=== PATIENT | female | born 1965 | race Caucasian/White ===

== ENCOUNTER → 2016-10-28 | Outpatient (CLI) | payer MEDICARE, OTHER ==
--- NOTE | 2016-10-28 14:22 | CT ---
EXAMINATION TYPE: CT chest wo con DATE OF EXAM: 10/28/2016 2:07 PM COMPARISON: NONE HISTORY: SOB CT DLP: 335.7 mGycm Automated exposure control for dose reduction was used. FINDINGS: High-resolution CT scanning through the chest demonstrates no significant interstitial change. There is no intralobular septal thickening or centrilobular thickening. No parenchymal mass lesion is seen. No groundglass opacity is seen. There is no significant axillary, internal mammary, mediastinal or h ilar adenopathy. There is no pleural or pericardial fluid. Visualized portions of the upper abdomen are unremarkable. IMPRESSION: NORMAL HIGH-RESOLUTION CT SCAN OF THE CHEST.
== END | disposition home or self-care (01) ==
LOC: RADCTMAIN 13:28
PROVIDERS: ATTEND Internal Medicine Critical Care Medicine
DX: R06.02 Shortness of breath (principal)
CPT/HCPCS: 71250

== ENCOUNTER → 2019-10-31 | Outpatient (CLI) | payer MEDICARE ==
--- NOTE | 2019-11-01 06:32 | BD ---
EXAMINATION TYPE: Axial Bone Density DATE OF EXAM: 10/31/2019 COMPARISON: 05.17.2007 CLINICAL HISTORY: 54 YR OLD FEMALE....ICD-10 CODE: M85.9 DISORDER OF BONE Height: 61 Weight: 107 FRAX RISK QUESTIONS: Glucocorticoids (More than 3mos): YES (Ex: prednisone, prednisolone, methylprednisolone, dexamethasone, and hydrocortisone). History of Fracture in Adulthood: PT ONLY 54, NO FXs OVER 50 YRS OF AGE Secondary Osteoporosis: YES 3. Menopause before 45: YES 4. Malnutrition: GLUTEN AND DAIRY FREE DIET Rheumatoid Arthritis: YES RISK FACTORS HISTORY OF: History of Wrist Fracture: LT WRIST, AND ALL TOES BROKEN ALL UNDER AGE OF 50 Active: NO, RA, SEVERE Diet low in dairy products/other sources of calcium: YES, DAIRY AND GLUTEN FREE Postmenopausal woman: YES, HYST AT AGE 27 Take estrogen and/or progesterone medications: YES, FROM AGE 27 TO 30 ONLY, NONE NOW Lost more than 2 inches in height since high school: YES Frequent falls: UNSTEADY, RA Poor Health: SEVERE RA, FRAIL Hyperparathyroidism: NO Adrenal Insufficiency: NO MEDICATIONS: Prednisone or other steroids: YES FOR MANY YRS SINCE AGE 19, PREDNISONE FOR RA Thyroid Medications: YES, SYNTHROID FOR ABOUT 3 YRS Additional Medications: XELJENZ XL, METHOTREXATE, PAIN MEDS, WELLBUTRIN, XANAX, REFLUX MEDS, STATIN F OR CHOLESTEROL, CALCIUM IN HER MULTIVITAMIN,VIT D AND VIT B Additional History: RA, REFLUX, CHOLESTEROL, PAIN EXAM MEASUREMENTS: Bone mineral densitometry was performed using the [employer] System. Bone mineral density as measured about the Lumbar spine is: ----- L1-L4(G/cm2): 1.042 T Score Values are as follows: ----- L1: -1.6 ----- L2: -1.6 ----- L3: -1.2 ----- L4: -0.3 ----- L1-L4: -1.1 Bone mineral density has: Decreased -1.7% since study of: 05.17.2007 Bone mineral density about the R hip (g/cm2): 0.890 Bone mineral density about the L hip (g/cm2): 0.806 T Score values are as follows: -----R Neck: -1.1 -----L Neck: -1.9 -----R Total: -0.9 -----L Total: -1.6 Bone mineral density has: Decreased -1.4% since study of: 05.17.2007 FRAX%s: THERE IS A 11.9% CHANCE FOR A MAJOR OSTEOPOROTIC FX AND A 1.9% FOR HIP.....PROBABILITY FOR FX IN 10 YRS TIME IMPRESSION: Osteopenia (T Score between -2.5 and -1). There is slightly increased risk of fracture and the patient may be considered for treatment. Re-Screen 2-5 years. NOTE: T-SCORE=SD OF THE YOUNG ADULT MEAN.
--- NOTE | 2019-11-04 09:00 | MM ---
Reason for exam: screening (asymptomatic). Last mammogram was performed 4 years and 11 months ago. History: Reductions of both breasts, 2018. Benign excisional biopsy of the right breast, December 05, 2002. Took hormonal contraceptives for 1 year. Took estrogen for 3 years beginning at age 27. Physical Findings: A clinical breast exam by your physician is recommended on an annual basis and results should be correlated with mammographic findings. MG Screening Mammo w CAD Bilateral CC and MLO view(s) were taken. Prior study comparison: December 03, 2014, bilateral MG diagnostic mammo w CAD [facility]. June 25, 2010, left breast mammogram dig work up. The breast tissue is heterogeneously dense. This may lower the sensitivity of mammography. Benign appearing coarse bilateral calcifications. No significant changes when compared with prior studies. ASSESSMENT: Benign, BI-RAD 2 RECOMMENDATION: Routine screening mammogram of both breasts in 1 year.
== END | disposition home or self-care (01) ==
LOC: RADMAMWWP 14:19
PROVIDERS: ATTEND Family Medicine
DX: Z12.31 Encounter for screening mammogram for malignant neoplasm of breast (principal); M85.80 Other specified disorders of bone density and structure, unspecified site
CPT/HCPCS: 77067; 77080

== ENCOUNTER → 2022-03-18 | Outpatient (CLI) | payer MEDICARE ==
[2022-03-18 18:53] LABS: Basophils # (A) 0.01 X 10*3/uL (0.00-0.10); Basophils % (A) 0.1 %; Eosinophils # (A) 0 X 10*3/uL (0.04-0.35); Eosinophils % (A) 0 %; HCT 37.3 % (37.2-46.3); HGB 10.9 g/dL (12.0-15.0); Lymphocytes % (A) 5.4 %; MCHC 29.2 g/dL (32.0-37.0); MCV 92.3 fL (80.0-97.0); Mean Platelet Volume 9.7 fL (9.5-12.2); Monocytes # (A) 0.13 X 10*3/uL (0.20-1.00); Monocytes % (A) 1.4 %; NRBC Per 100 WBC 0 /100 WBCS (0.0-0.0); Neutrophils # (A) 8.53 X 10*3/uL (1.80-7.70); Neutrophils % (A) 92.1 %; Platelet Count 505 X 10*3/uL (140-440); RBC 4.04 X 10*6/uL (4.10-5.20); RDW 20.8 % (11.5-14.5); WBC 9.26 X 10*3/uL (4.50-10.00)
[2022-03-18 19:28] LABS: Protein, Total 7.3 g/dL (6.2-8.2)
[2022-03-18 19:35] LABS: % Iron Saturation 69.15 (12.00-45.00); ALT 25 U/L (8-44); AST 20 U/L (13-35); African American GFR (CKD) 101.3 (60.0-200.0); Albumin 4.9 g/dL (3.8-4.9); Albumin/Globulin Ratio 1.83 (1.60-3.17); Alkaline Phosphatase 79 U/L (41-126); Bilirubin, Conjugated <0.20 mg/dL (0.20-0.40); Ferritin 55.2 ng/mL (10.0-291.0); Globulin 2.7 g/dL (1.6-3.3); Iron 394 ug/dL (50-170); LDH 243 U/L (120-246); Non-African American GFR(CKD) 87.4 (60.0-200.0); Total Bilirubin <0.15 mg/dL (0.30-1.20); Total Iron Binding Capacity 570 ug/dL (228-460); Total Protein 7.6 g/dL (6.2-8.2)
[2022-03-19 11:26] LABS: HLA B27 NEGATIVE
== END | disposition home or self-care (01) ==
LOC: LABWHC1 12:18
PROVIDERS: ATTEND Internal Medicine
DX: M05.79 Rheumatoid arthritis with rheumatoid factor of multiple sites without organ or systems involvement (principal)
CPT/HCPCS: 36415; 80076; 82565; 82607; 82728; 82746; 83010; 83540; 83550; 83615; 84165; 85025; 86334; 86812

== ENCOUNTER → 2022-03-25 | Outpatient (CLI) | payer MEDICARE | END | disposition home or self-care (01) | LOC: LABWHC1 13:44 | PROVIDERS: ATTEND Internal Medicine | DX: Z51.81 Encounter for therapeutic drug level monitoring (principal); M06.9 Rheumatoid arthritis, unspecified | CPT/HCPCS: 84166 ==

== ENCOUNTER → 2022-04-15 | Outpatient (CLI) | payer MEDICARE ==
--- NOTE | 2022-04-15 10:01 | CT ---
EXAMINATION TYPE: High-resolution CT chest DATE OF EXAM: 04/15/2022 COMPARISON: 10/28/2016 HISTORY: 57-year-old female R06.02, D84.9, M06.9, Hx of rheumatoid arthritis, lung infection x 6weeks . TECHNIQUE: High-resolution CT scanning of the chest utilizing 1 mm slice thickness and 1 cm gap or HR CT protocol. No IV contrast. Both prone and supine imaging is performed. CT DLP: DLP 259.5 mGycm Automated exposure control for dose reduction was used. FINDINGS: Patient has either lost weight in the interval or is had reduction mammoplasties. Areas of bilateral fat necrosis calcification in the breasts are noted. Heart normal size with small anterior pericardial effusion measuring 5 mm. Aorta normal caliber with bovine configuration to the aortic arch. Incidental duplex SVC. No thoracic lymphadenopathy appreciated by HRCT technique. Trace biapical pleural parenchymal scarring. Some mild subpleural reticular densities in the upper hardeep ngs are unchanged. Additional mild reticular changes in the lower lungs as well though having slightly increased from pr ior. No honeycombing or dominant groundglass. No consolidation or pleural effusion. Some mild patchy densi ty medial basilar right middle lobe, likely atelectasis. No centrilobular nodules. No [place]bud opa cities. No rin bronchiectasis seen. Small hiatal hernia. Nonobstructive 4 mm left renal calculus. Bones: No osseous destructive process. IMPRESSION: 1. MINIMAL SUBPLEURAL INTERSTITIAL SCARRING/FIBROSIS IS SUGGESTED, SIMILAR IN THE UPPER LUNGS. SLIGHT PROGRESSION IN THE LOWER LUNGS. NO DOMINANT FINDINGS OF NSIP OR UIP. 2. SMALL ANTERIOR PERICARDIAL EFFUSION MEASURING 5 MM. 3. SMALL HIATAL HERNIA. A 4 MM NONOBSTRUCTIVE LEFT RENAL STONE.
== END | disposition home or self-care (01) ==
LOC: RADCTMAIN 06:32
PROVIDERS: ATTEND Internal Medicine
DX: J90 Pleural effusion, not elsewhere classified (principal); K44.9 Diaphragmatic hernia without obstruction or gangrene; I31.3 Pericardial effusion (noninflammatory)
CPT/HCPCS: 71250

== ENCOUNTER → 2022-04-27 | Outpatient (CLI) | payer MEDICARE ==
[2022-04-27 14:42] LABS: Appearance,Urine Clear (Clear); Bilirubin,Urine Negative (Negative); Blood,Urine Moderate (Negative); Color,Urine Yellow; Glucose,Urine (UA) 4+ (Negative); Ketones,Urine Negative (Negative); Leukocyte Esterase,Urine Negative (Negative); Mucus,Urine Rare /hpf; Nitrite,Urine Negative (Negative); PH, Urine 5.5 (5.0-8.0); Protein,Urine Trace (Negative); RBC,Urine 6 /hpf (0-5); Specific Gravity,Urine 1.021 (1.001-1.035); Squamous Epithelial Cell,Urine <1 /hpf (0-4); Urobilinogen,Urine <2.0 mg/dL (<2.0); WBC,Urine 1 /hpf (0-5)
[2022-04-27 14:55] LABS: Creatinine,Urine Random 96.6 mg/dL; Protein/Creatinine Ratio,Urine 0.145
[2022-04-27 19:36] LABS: Basophils # (A) 0.06 X 10*3/uL (0.00-0.10); Basophils % (A) 0.3 %; Eosinophils # (A) 0 X 10*3/uL (0.04-0.35); Eosinophils % (A) 0 %; HCT 37.5 % (37.2-46.3); HGB 10.7 g/dL (12.0-15.0); Immature Grans, Automated 2.5 %; Lymphocytes # (A) 0.98 X 10*3/uL (0.90-5.00); Lymphocytes % (A) 5.2 %; MCH 27.4 pg (27.0-32.0); MCHC 28.5 g/dL (32.0-37.0); MCV 96.2 fL (80.0-97.0); Mean Platelet Volume 10.2 fL (9.5-12.2); Monocytes # (A) 0.51 X 10*3/uL (0.20-1.00); Monocytes % (A) 2.7 %; NRBC Per 100 WBC 0 /100 WBCS (0.0-0.0); Neutrophils # (A) 16.85 X 10*3/uL (1.80-7.70); Neutrophils % (A) 89.3 %; Platelet Count 568 X 10*3/uL (140-440); RDW 17.3 % (11.5-14.5); WBC 18.88 X 10*3/uL (4.50-10.00)
[2022-04-27 20:25] LABS: Erythrocyte Sedimentation Rate 29 mm/Hr (0-30)
[2022-04-27 21:09] LABS: Rheumatoid Factor, Qnt 161 IU/mL (0-15)
[2022-04-27 21:23] LABS: ALT 27 U/L (8-44); AST 18 U/L (13-35); African American GFR (CKD) 99.7 (60.0-200.0); Albumin 4.1 g/dL (3.8-4.9); Albumin/Globulin Ratio 1.53 (1.60-3.17); Alkaline Phosphatase 84 U/L (41-126); BUN/Creat Ratio 28.83 Ratio (12.00-20.00); Blood Urea Nitrogen 22.4 mg/dL (9.0-27.0); Calcium 9.8 mg/dL (8.7-10.3); Carbon Dioxide 24.9 mmol/L (20.0-27.5); Chloride 99 mmol/L (96-109); Globulin 2.7 g/dL (1.6-3.3); Glucose 313 mg/dL (70-110); Potassium 3.6 mmol/L (3.5-5.5); Sodium 137 mmol/L (135-145); Total Bilirubin <0.15 mg/dL (0.30-1.20); Total Protein 6.7 g/dL (6.2-8.2)
[2022-04-27 23:24] LABS: Immunoglobulin M 52.7 mg/dL (40.0-280.0)
[2022-04-28 03:50] LABS: Anti-DNA, DS unit <1.0 IU/mL; Anti-Smith Ab Interp NEGATIVE (NEGATIVE); Cyclic Citrull Pep IgG Unit >300.0 U/mL; Cyclic Citrullinated Pep IgG POSITIVE (NEGATIVE); DNA Double-Stranded NEGATIVE (NEGATIVE)
[2022-04-28 14:38] LABS: C-ANCA <1:20 Titer (<1:20)
== END | disposition home or self-care (01) ==
LOC: LABWHC1 13:29
PROVIDERS: ATTEND Internal Medicine
DX: Z51.81 Encounter for therapeutic drug level monitoring (principal); M05.79 Rheumatoid arthritis with rheumatoid factor of multiple sites without organ or systems involvement
CPT/HCPCS: 36415; 80053; 81001; 82570; 82784; 83516; 84156; 85025; 85652; 86038; 86140; 86160; 86200; 86225; 86235; 86255; 86431; 86480

== ENCOUNTER 2022-05-12 10:38 | Day surgery (SDC) | payer MEDICARE ==
[~2022-05-12 10:38] MED LIST: ALBUTEROL NEB (CONC) 2.5 MG/0.5 ML INHALATION ONE; ATROPINE SULFATE 0.4 MG/ML 1 ML VIAL IM ONE; LACTATED RINGERS 1,000 ML IV SCH; LIDOCAINE 2% (PF) 20 MG/ML 5 ML VIAL INHALATION ONE; LIDOCAINE VISCOUS 300 MG/15 ML CUP MUCOUS MEM ONE
[2022-05-12 11:04] LABS: Glucose,Whole Blood 71 mg/dL (70-110)
[2022-05-12 11:05] VITALS: TEMP 97.2
[2022-05-12] MEDS ORDERED: ONDANSETRON 4 MG/2 ML VIAL IVP ONE (11:09)
[2022-05-12] MEDS ORDERED: ONDANSETRON 4 MG/2 ML VIAL ONE (11:12)
[2022-05-12] MEDS ORDERED: LIDOCAINE 2% INJ 20 MG/ML INTRATRACH ONE ×2 (12:16→12:21)
[2022-05-12] MEDS ORDERED: PROPOFOL 10 MG/ML 20 ML VIAL IV ONE (12:17)
[2022-05-12] MEDS ORDERED: MIDAZOLAM 2 MG/2 ML VIAL ONE (12:17)
[2022-05-12] MEDS ORDERED: LIDOCAINE 2% INJ 20 MG/ML (2 ML VIAL) ONE (12:17)
[2022-05-12 12:55] VITALS: BP 101/70; PULSE 88; RESP 18
--- NOTE | 2022-05-12 22:30 | PCN ---
PROCEDURE NOTE This is a Pulmonary/Critical Care procedure note. PRE-PROCEDURE DIAGNOSES:: 1. Rheumatoid arthritis. 2. Pneumonia. 3. Infection. POST PROCEDURE DIAGNOSES:: 1. Rheumatoid arthritis. 2. Pneumonia. 3. Infection. PROCEDURE:: Bronchoscopy, airway examination, therapeutic lavage, bronchoalveolar lavage. PROCEDURE:: Tyrone Beltrán CRNA, provided general anesthesia. The patient's procedure took place in room #1 [facility]. There was informed consent and universal timeout. After the patient was adequately sedated and being fully monitored, the bronchoscope was inserted through the right nostril. It passed through the right nasopharynx into the oropharynx. The hypopharynx was identified. Initially, there were thick yellow secretions noted throughout the hypopharynx. They were suctioned. Next, there was a thorough evaluation of the hypopharyngeal structures including anterior commissure, true cords, false cords, arytenoids, piriform sinuses right and left, vallecula, and epiglottis. All structures appeared normal. After topicalization of the glottic opening, the bronchoscope was pushed through the glottic opening into the trachea. The trachea had some thick secretions noted. They were suctioned. The trachea itself though appeared normal. Tracheal renea was sharp. Right and left mainstem were topicalized with lidocaine. Afterwards, there was a thorough evaluation of right upper lobe and its 3 segments, right middle lobe and its 2 segments, right lower lobe and its 5 segments, left upper lobe proper and its 2 segments, lingula and its 2 segments, and left lower lobe and its 4 segments. Thick secretions were noted throughout. They were purulent appearing. The mucosa was [id number]-fnoktretra erythematous and hyperemic. There was no dominant mass or tumor. There was no bleeding. There was some vascular engorgement. After secretions were suctioned, the bronchoscope was wedged into the right middle lobe. We did a formal BAL. 35 mL of fluid was recovered. The fluid will be sent for analysis including CBC with differential, cytology, and microbiology. The patient tolerated the procedure well and will be recovered. There was no immediate complication. MMODL / IJN: [id number] / [facility] CENTERJustino
[2022-05-13 01:32] LABS: Appearance,BF Cloudy
== END 2022-05-12 13:10 | disposition home or self-care (01) ==
LOC: ORWHC2ENDO 10:38
PROVIDERS: ATTEND Internal Medicine Critical Care Medicine
DX: J18.9 Pneumonia, unspecified organism (principal); M06.9 Rheumatoid arthritis, unspecified; J45.909 Unspecified asthma, uncomplicated; E06.3 Autoimmune thyroiditis; F41.9 Anxiety disorder, unspecified; F32.A Depression, unspecified; K21.9 Gastro-esophageal reflux disease without esophagitis; Z88.5 Allergy status to narcotic agent; Z88.8 Allergy status to other drugs, medicaments and biological substances; Z88.3 Allergy status to other anti-infective agents; Z79.899 Other long term (current) drug therapy; Z79.52 Long term (current) use of systemic steroids; Z79.890 Hormone replacement therapy; Z83.6 Family history of other diseases of the respiratory system; Z81.8 Family history of other mental and behavioral disorders; Z79.82 Long term (current) use of aspirin; Z79.51 Long term (current) use of inhaled steroids; I73.00 Raynaud's syndrome without gangrene; D64.9 Anemia, unspecified
CPT/HCPCS: 88108; 88305; 89050; 87252; 87070; 87205; 87116; 87102; 87077; 87186; 87206; 31624; J2001 ×2; J2250; J0461; J2405; J2704; 87496; 87498; 87502; 87529; 87634; 87798

== ENCOUNTER → 2022-06-16 | Outpatient (CLI) | payer MEDICARE ==
--- NOTE | 2022-06-16 19:20 | BD ---
EXAMINATION TYPE: Axial Bone Density DATE OF EXAM: 06/16/2022 CLINICAL HISTORY: 57 years year old Female. ICD-10 CODE: M85.80 OSTEOPERNIA Height: 62 Weight: 105 FRAX RISK QUESTIONS: Alcohol (3 or more units per day): NO Family History (Parent hip fracture): NO Glucocorticoids (More than 3mos): YES (Ex: prednisone, prednisolone, methylprednisolone, dexamethasone, and hydrocortisone). History of Fracture in Adulthood: NO Secondary Osteoporosis: 1. Type 1 Diabetes: NO 2. Hyperthyroidism: NO 3. Menopause before 45: YES 4. Malnutrition: YES 5. Chronic liver disease: NO Rheumatoid Arthritis: YES Current Tobacco Use: NO RISK FACTORS HISTORY OF: Hip Fracture (Right/Left): NO Spine Fracture: NO History of Wrist Fracture: YES When: AGE 14 Surgery to Spine/Hip(right/left)/Wrist (right/left): NO Family History of Osteoporosis: YES, MOTHER Active: YES Diet low in dairy products/other sources of calcium: YES Postmenopausal woman: YES Take estrogen and/or progesterone medications: NO Lost more than 2 inches in height since high school: NO Frequent falls: NO Poor Health: YES Hyperparathyroidism: NO Adrenal Insufficiency: NO MEDICATIONS: Prednisone or other steroids: YES PREDNISONE How Long: PAST 15 YEARS Thyroid Medications: SYNTHROID How Long: PAST 4 YEARS Osteoporosis Medications: NO Additional Medications: REFLUX MEDS, MULTI VIT. Additional History: EXAM MEASUREMENTS: Bone mineral densitometry was performed using the [email or web address] System. Bone mineral density as measured about the Lumbar spine is: ----- L1-L4(G/cm2): 0.929 T Score Values are as follows: ----- L1: -2.6 ----- L2: -2.1 ----- L3: -2.2 ----- L4: -1.7 ----- L1-L4: -2.1 Bone mineral density has: DECREASED 12.2 % since study of: 05/17/2007 Bone mineral density about the R hip (g/cm2): 0.820 Bone mineral density about the L hip (g/cm2): 0.697 T Score values are as follows: -----R Neck: -1.6 -----L Neck: -2.5 -----R Total: -1.4 -----L Total: -2.3 Bone mineral density has: DECREASED 9.7 % since study of: 05/16/2007 FRAX%s: The graph provided illustrates a 16.9% chance for a major osteoporotic fx and a 4.2% chance f or the hips probability for fx in 10 years time. IMPRESSION: Osteoporosis (T Score less than -2.5). There is increased fracture risk and therapy is usually indicated based on age. Re-Screen 1-2 years. NOTE: T-SCORE=SD OF THE YOUNG ADULT MEAN.
--- NOTE | 2022-06-24 17:57 | MM ---
Reason for Exam: Screening (asymptomatic). Last mammogram was performed 2 year(s) and 8 month(s) ago. Patient History: Menarche at age 18. First Full-Term at age 21. Left ovary removed at age 27. Hysterectomy at age 27. Patient used Hormonal Contraceptives for 1 year. 2018, Bilateral Reduction. 12/05/2002, Benign Excisional Biopsy on the right side. Risk Values: Ana 5 year model risk: 0.9%. NCI Lifetime model risk: 6.4%. Prior Study Comparison: 06/25/2010 Left Diagnostic Mammogram, [facility]. 12/03/2014 Bilateral Diagnostic Mammogram, [facility]. 10/31/2019 Bilateral Screening Mammogram, [facility]. Tissue Density: There are scattered fibroglandular densities. Findings: Analyzed By CAD. Dense coarse large calcifications are present bilaterally. No significant interval changes are evident. No suspicious groups of microcalcifications, spiculated or lobular masses, architectural distortion or other secondary signs of malignancy are mammographically apparent. Overall Assessment: Benign, BI-RAD 2 Management: Screening Mammogram of both breasts in 1 year. A negative mammogram report should not preclude additional follow up of suspicious palpable abnormalities. Patient should continue monthly self breast exam. A clinical breast exam by your physician is recommended on an annual basis and results should be correlated with mammographic findings. Electronically signed and approved by: Moises Lafleur D.O. Radiologis
== END | disposition home or self-care (01) ==
LOC: RADMAMWWP 07:59
PROVIDERS: ATTEND Family Medicine
DX: Z12.31 Encounter for screening mammogram for malignant neoplasm of breast (principal); M81.0 Age-related osteoporosis without current pathological fracture
CPT/HCPCS: 77063; 77067; 77080

== ENCOUNTER → 2022-08-01 | Outpatient (CLI) | payer MEDICARE ==
--- NOTE | 2022-08-01 11:09 | US ---
EXAMINATION TYPE: US kidneys/renal and bladder DATE OF EXAM: 08/01/2022 COMPARISON: NONE CLINICAL HISTORY: R80.1 PERSISTENT PROTEINURIA. Abnormal labs EXAM MEASUREMENTS: Right Kidney: 9.6 x 5.0 x 4.8 cm Left Kidney: 9.3 x 5.1 x 4.0 cm Right Kidney: Appeared wnl, lower pole gassed out Left Kidney: Appeared wnl Bladder: Not fully distended, limited views show no abnormality Bilateral Jets seen: Only right jet visualized There is no evidence for hydronephrosis at this point in time. No nephrolithiasis is seen. No stan s are identified. The urinary bladder is anechoic. Bilateral right ureteral jet is seen. IMPRESSION: Limited right lower pole evaluation without evidence for bilateral obstructive uropathy.
== END | disposition home or self-care (01) ==
LOC: RADUSWWP 10:33
DX: R80.1 Persistent proteinuria, unspecified (principal)
CPT/HCPCS: 76770

== ENCOUNTER → 2022-10-26 | Outpatient (CLI) | payer MEDICARE ==
[2022-10-26 16:41] LABS: Basophils # (A) 0.09 X 10*3/uL (0.00-0.10); Basophils % (A) 1.8 %; Eosinophils # (A) 0.16 X 10*3/uL (0.04-0.35); Eosinophils % (A) 3.1 %; HCT 41.2 % (37.2-46.3); HGB 12.8 g/dL (12.0-15.0); Immature Grans, Automated 0.2 %; Lymphocytes # (A) 1.92 X 10*3/uL (0.90-5.00); Lymphocytes % (A) 37.7 %; MCH 30.3 pg (27.0-32.0); MCHC 31.1 g/dL (32.0-37.0); MCV 97.6 fL (80.0-97.0); Mean Platelet Volume 11.3 fL (9.5-12.2); Monocytes # (A) 0.44 X 10*3/uL (0.20-1.00); Monocytes % (A) 8.6 %; NRBC Per 100 WBC 0 /100 WBCS (0.0-0.0); Neutrophils # (A) 2.47 X 10*3/uL (1.80-7.70); Neutrophils % (A) 48.6 %; Platelet Count 288 X 10*3/uL (140-440); RBC 4.22 X 10*6/uL (4.10-5.20); RDW 14.7 % (11.5-14.5); WBC 5.09 X 10*3/uL (4.50-10.00)
[2022-10-27 12:15] LABS: ALT 23 U/L (8-44); AST 27 U/L (13-35); African American GFR (CKD) 73.4 (60.0-200.0); Albumin 4.6 g/dL (3.8-4.9); Albumin/Globulin Ratio 2.42 (1.60-3.17); Alkaline Phosphatase 61 U/L (41-126); Bilirubin, Conjugated <0.20 mg/dL (0.20-0.40); Chol/HDL Ratio 3.55 Ratio; Globulin 1.9 g/dL (1.6-3.3); LDL Cholesterol,Calculated 159.7 mg/dL (0.0-131.0); Non-African American GFR(CKD) 63.4 (60.0-200.0); Total Protein 6.5 g/dL (6.2-8.2)
== END | disposition home or self-care (01) ==
LOC: LABWHC1 08:53
PROVIDERS: ATTEND Internal Medicine
DX: Z51.81 Encounter for therapeutic drug level monitoring (principal); D84.9 Immunodeficiency, unspecified; M05.79 Rheumatoid arthritis with rheumatoid factor of multiple sites without organ or systems involvement; Z79.899 Other long term (current) drug therapy
CPT/HCPCS: 36415; 80061; 80076; 82565; 85025

== ENCOUNTER → 2022-12-21 | Outpatient (CLI) | payer MEDICARE ==
[2022-12-21 18:18] LABS: Basophils # (A) 0.04 X 10*3/uL (0.00-0.10); Basophils % (A) 0.8 %; Eosinophils # (A) 0.09 X 10*3/uL (0.04-0.35); Eosinophils % (A) 1.9 %; HCT 35.6 % (37.2-46.3); HGB 11.6 g/dL (12.0-15.0); Immature Grans, Automated 0.2 %; Lymphocytes # (A) 0.88 X 10*3/uL (0.90-5.00); Lymphocytes % (A) 18.2 %; MCH 31.4 pg (27.0-32.0); MCHC 32.6 g/dL (32.0-37.0); MCV 96.5 fL (80.0-97.0); Mean Platelet Volume 11.7 fL (9.5-12.2); Monocytes # (A) 0.38 X 10*3/uL (0.20-1.00); Monocytes % (A) 7.9 %; NRBC Per 100 WBC 0 /100 WBCS (0.0-0.0); Neutrophils # (A) 3.44 X 10*3/uL (1.80-7.70); Platelet Count 242 X 10*3/uL (140-440); RBC 3.69 X 10*6/uL (4.10-5.20); RDW 14.8 % (11.5-14.5); WBC 4.84 X 10*3/uL (4.50-10.00)
[2022-12-21 18:21] LABS: African American GFR (CKD) 90.6 (60.0-200.0); Albumin 4.6 g/dL (3.8-4.9); BUN/Creat Ratio 13.44 Ratio (12.00-20.00); Blood Urea Nitrogen 11.3 mg/dL (9.0-27.0); Calcium 10.1 mg/dL (8.7-10.3); Carbon Dioxide 29.8 mmol/L (20.0-27.5); Chloride 105 mmol/L (96-109); Chol/HDL Ratio 3.49 Ratio; Glucose 77 mg/dL (70-110); LDL Cholesterol,Calculated 167.3 mg/dL (0.0-131.0); Non-African American GFR(CKD) 78.1 (60.0-200.0); Potassium 3.4 mmol/L (3.5-5.5); Sodium 145 mmol/L (135-145); VLDL Calculation 16.14 mg/dL (5.00-40.00)
[2022-12-22 14:17] LABS: ALT 36 U/L (8-44); AST 39 U/L (13-35); African American GFR (CKD) 83.4 (60.0-200.0); Albumin 4.7 g/dL (3.8-4.9); Albumin/Globulin Ratio 2.76 (1.60-3.17); Alkaline Phosphatase 73 U/L (41-126); Bilirubin, Conjugated <0.20 mg/dL (0.20-0.40); Globulin 1.7 g/dL (1.6-3.3); Total Protein 6.4 g/dL (6.2-8.2)
== END | disposition home or self-care (01) ==
LOC: LABWHC1 12:59
PROVIDERS: ATTEND Internal Medicine
DX: Z51.81 Encounter for therapeutic drug level monitoring (principal); D84.9 Immunodeficiency, unspecified; M05.79 Rheumatoid arthritis with rheumatoid factor of multiple sites without organ or systems involvement
CPT/HCPCS: 36415; 80061; 80069; 80076; 82565; 85025

== ENCOUNTER → 2023-04-17 | Outpatient (CLI) | payer MEDICARE ==
[2023-04-17 16:11] LABS: ALT 44 U/L (8-44); AST 18 U/L (13-35); Albumin 4.1 d/dL (3.8-4.9); Albumin/Globulin Ratio 1.64 Ratio (1.60-3.17); Alkaline Phosphatase 129 U/L (41-126); Bilirubin, Conjugated <0.20 mg/dL (0.20-0.40); Bilirubin,Unconjugated >0.10 mg/dL (0.20-1.00); Chol/HDL Ratio 3.04 Ratio; Globulin 2.5 d/dL (1.6-3.3); LDL Cholesterol,Calculated 134.8 mg/dL (0.0-131.0); Total Bilirubin 0.3 mg/dL (0.3-1.2); Total Protein 6.6 d/dL (6.2-8.2); VLDL Calculation 18.28 mg/dL (5.00-40.00)
[2023-04-17 16:44] LABS: Basophils # (A) 0.07 X 10*3/uL (0.00-0.10); Basophils % (A) 0.5 %; Eosinophils # (A) 0.14 X 10*3/uL (0.04-0.35); HCT 37.4 % (37.2-46.3); HGB 11.8 d/dL (12.0-15.0); Lymphocytes # (A) 2.27 X 10*3/uL (0.90-5.00); Lymphocytes % (A) 16.1 %; MCH 32.2 pg (27.0-32.0); MCHC 31.6 d/dL (32.0-37.0); MCV 101.9 FL (80.0-97.0); Monocytes # (A) 0.75 X 10*3/uL (0.20-1.00); Monocytes % (A) 5.3 %; NRBC Per 100 WBC 0 X 10*3/uL (0.00-0.01); Neutrophils # (A) 10.77 X 10*3/uL (1.80-7.70); Neutrophils % (A) 76.7 %; Platelet Count 491 X 10*3/uL (140-440); RBC 3.67 X 10*6/uL (4.10-5.20); RDW 11.9 % (11.5-14.5); WBC 14.06 X 10*3/uL (4.50-10.00)
== END | disposition home or self-care (01) ==
LOC: LABWHC1 09:08
PROVIDERS: ATTEND Internal Medicine
DX: Z51.81 Encounter for therapeutic drug level monitoring (principal); M05.79 Rheumatoid arthritis with rheumatoid factor of multiple sites without organ or systems involvement; D84.9 Immunodeficiency, unspecified
CPT/HCPCS: 36415; 80061; 80076; 82565; 85025

== ENCOUNTER 2023-05-08 10:39 | Day surgery (SDC) | payer MEDICARE ==
[2023-04-19 15:34] VITALS: BMI 17.4
[~2023-05-08 10:39] MED LIST changes: -ALBUTEROL NEB (CONC) 2.5 MG/0.5 ML INHALATION ONE; -ATROPINE SULFATE 0.4 MG/ML 1 ML VIAL IM ONE; +DEXAMETHASONE SOD PHOSPHATE 4 MG/ML 1 ML VIAL IV ONE; +HYDROmorphone 0.5 MG/0.5 ML SYRINGE IVP PRN; +LIDOCAINE 1% (10MG/ML) FOR IV START INTRADERMA PRN; -LIDOCAINE 2% (PF) 20 MG/ML 5 ML VIAL INHALATION ONE; -LIDOCAINE VISCOUS 300 MG/15 ML CUP MUCOUS MEM ONE; +ONDANSETRON 4 MG/2 ML VIAL IVP PRN; +droPERidol 5 MG/2 ML VIAL IVP ONE
[2023-05-08] MEDS ORDERED: MIDAZOLAM 2 MG/2 ML VIAL IVP ONE (12:19)
[2023-05-08] MEDS ORDERED: ROPIVACAINE 5 MG/ML 30 ML VIAL ONE (13:00)
[2023-05-08] MEDS ORDERED: MIDAZOLAM 2 MG/2 ML VIAL ONE (13:00)
[2023-05-08] MEDS ORDERED: PROPOFOL 10 MG/ML 20 ML VIAL IV ONE (13:00)
[2023-05-08] MEDS ORDERED: SUCCINYLCHOLINE CHLORIDE 200 MG/10 ML VIAL IV ONE (13:00)
[2023-05-08] MEDS ORDERED: LIDOCAINE 2% INJ 20 MG/ML (2 ML VIAL) ONE (13:00)
[2023-05-08] MEDS ORDERED: PHENYLEPHRINE 10 MG/ML VIAL ONE (13:00)
[2023-05-08] MEDS ORDERED: fentaNYL (PF) 50 MCG/ML 2 ML AMP ONE (13:00)
[2023-05-08] MEDS ORDERED: DEXAMETHASONE SOD PHOSPHATE 4 MG/ML 1 ML VIAL ONE (13:00)
[2023-05-08] MEDS ORDERED: SODIUM CHLORIDE 0.9% 50 ML with ceFAZolin 1,000 MG IV ONE ×2 (13:16)
[2023-05-08] MEDS ORDERED: IV FLUID CONTINUATION 900 ML IV ONE (15:41)
[2023-05-08 15:43] VITALS: TEMP 96.7
[2023-05-08 16:47] VITALS: BP 104/72; PULSE 96; RESP 16
--- NOTE | 2023-05-08 17:24 | P.OP ---
Date of Procedure: 05/08/23 Preoperative Diagnosis: Right failed total wrist Postoperative Diagnosis: same Procedure(s) Performed: Right wrist hardware removal Right wrist fusion with allograft Right wrist capsulectomy Implants: Synthes straight fusion plate Femoral head allograft Anesthesia: meena BURR Surgeon: Willow Jasmine [employer] Assistant #1: Evelyn Goodwin Estimated Blood Loss (ml): 20 Pathology: none sent Condition: stable Disposition: PACU Indications for Procedure: Pt is a 58 yr old female with long history of RA and total wrist arthroplasty and darrach in 2016, who now has a failed and dislocated total wrist. It has become disfunctional and painful. XR do not show any signs of loosening or infection. We have decided to remove the hardware and fuse the joint. Operative Findings: Extensive metalosis of wrist joint well fixated wrist prosthesis with signs of wear. Description of Procedure: The patient, operative, extremtiy, and procedure were ID'd in the preop holding area. After informed consent, she received a regional block. She was then brought back to the OR where the extremtiy was prepped and draped in normal sterile fashion. After a formal timeout, the tourniquet was inflated. The previous TWA incision was reincised. Dissection carried down to the extensor tendons. The EPL and finger extensors were identified and protected. There was no visible organized extensor retinaculum. Dissection was carried down longitudinally through the wrist capsule. Upon entering the joint, there was copious amount of metalosis reaction and thickening of the synovium. This black synovium was carefully removed. A culture was obtained of the synovial fluid. Attention was first turn to the radial component. It was well fixed distally and an osteotome was used to loosen it from the cortical bone. There was some splitting volarly but the majority of the cortex was unharmed as the proxthesis was removed. Attention was then turned to the carpal component. The poly was removed with a screw inserted perpendicular to the seat of the component popping the poly off. The two screws were then removed and the remainder of the plate removed. There was some osteolysis around the peg of the plate and this was removed easily. The wrist capsule and joint was debrided. The ends of the metacarpals were trimmed with a ronguer to access cancellous bone. All fibrous soft tissue was removed from the carpal and radial sides and the defect was measured. There was approximately 2cm of gap with gentle traction on the hand. A femoral allograft was then trimmed to fit the space. A small step cut was made to accomodate the volar cortical defect. It was fitted into the defect and trimmed to fit. A straight wrist fusion plate was selected. It was affixed distally in the 3rd metacarpal and then to the radial shaft under compression mode. The remainder of the plate was filled with locking and nonlocking screws. Final views showed a well fitted allograft with hardware in place. Chips were made from the remaining femoral head allograft and this was used to fill any remaining voids. The dorsal wrist capsule was repaired. The tourniqet was let down, hemostasis achieved and the remainder of the wound was closed with 4.0 nylon. Wound was dressed and splinted with a volar splint.
--- NOTE | 2023-05-08 19:15 | P.ANPRN ---
Procedure Note - Anesthesia - Nerve Block Performed Right Supraclavicular Single Time Out Performed: Yes Date of Procedure: 05/08/23 Procedure Start Time: 12:18 Procedure Stop Time: 12:30 Location of Patient: PreOp Indication: Acute Post-Operative Pain, Requested by Surgeon Sedation Type: Sedate with meaningful contact maintained Preparation: Sterile Prep Position: Supine Needle Types: Pajunk Needle Gauge: 21 Ultrasound used to visualize needle placement: Yes Ultrasound used to observe medication spread: Yes Blood Aspirated: No Pain Paresthesia on Injection Noted: No Resistance on Injection: Normal Image Stored and Saved: Yes Events: Uneventful and Well Tolerated (Ropivacaine 0.5% 20 mL plus dexamethasone 4 mg)
== END 2023-05-08 17:04 | disposition home or self-care (01) ==
LOC: OR 10:39
PROVIDERS: ATTEND Orthopaedic Surgery Hand Surgery
DX: T84.098A Other mechanical complication of other internal joint prosthesis, initial encounter (principal); G89.18 Other acute postprocedural pain; J45.909 Unspecified asthma, uncomplicated; E03.9 Hypothyroidism, unspecified; K21.9 Gastro-esophageal reflux disease without esophagitis; Z88.5 Allergy status to narcotic agent; Z79.899 Other long term (current) drug therapy
CPT/HCPCS: 87070; 87205; 87075; 20680; 25999; 25320; 64415; J2250; J1100; J2405; J0690

== ENCOUNTER 2023-08-08 18:08 | Emergency (ER) | payer MEDICARE ==
--- NOTE | 2023-08-08 19:46 | ED ---
Fall HPI - General Source: patient Mode of arrival: ambulatory <AlexiaromeroAngelRaúl - Last Filed: 08/08/23 19:48> - History of Present Illness MD Complaint: fall <Anuel Masterson - Last Filed: 08/14/23 22:56> - General Chief Complaint: Fall Stated Complaint: left hip pain - History of Present Illness Initial Comments: 58 year old female Present to the ED status post multiple falls. Reports during these falls did fall backwards. Now notes back pain, buttock/hip pain, and left ankle/foot pain. No head injury during any of these falls. (Raúl Means) - Related Data Home Medications Medication Instructions Recorded Confirmed Cyclobenzaprine [Flexeril] 10 mg PO TID 04/10/14 05/08/23 Levothyroxine Sodium [Synthroid] 50 mcg PO QAM 05/11/22 05/08/23 busPIRone HCL [Buspar] 7.5 mg PO BID 05/11/22 05/08/23 HYDROcodone/APAP 7.5-325MG [Hayden 1 tab PO TID 04/19/23 05/08/23 7.5-325] Meloxicam [Mobic] 7.5 mg PO DAILY 04/19/23 05/08/23 Pregabalin [Lyrica] 75 mg PO BID 04/19/23 05/08/23 Zolpidem [Ambien] 5 mg PO HS PRN 05/04/23 05/08/23 Previous Rx's Medication Instructions Recorded Ketorolac [Toradol] 10 mg PO Q6HR #20 tab 05/08/23 Ondansetron Odt [Zofran Odt] 4 mg PO Q12HR PRN #10 tab 05/08/23 predniSONE [Deltasone] 20 mg PO BID #8 tab 08/09/23 Allergies Allergy/AdvReac Type Severity Reaction Status Date / Time iodine Allergy Intermediate Rash/Hives Verified 08/08/23 18:17 ciprofloxacin [From Cipro] Allergy Unknown Verified 08/08/23 18:17 ciprofloxacin HCl Allergy Unknown Verified 08/08/23 18:17 [From Cipro] codeine Allergy Vomiting Verified 08/08/23 18:17 gabapentin [From Neurontin] Allergy Swelling Verified 08/08/23 18:17 levothyroxine sodium Allergy Swelling Verified 08/08/23 18:17 [From Synthroid] meperidine HCl [From Demerol] Allergy Hallucinati Verified 08/08/23 18:17 ons propoxyphene HCl Allergy Vomiting Verified 08/08/23 18:17 [From Darvon] tramadol Allergy Hallucinati Verified 08/08/23 18:17 ons Review of Systems ROS Other: All systems not noted in ROS Statement are negative. <Raúl Means - Last Filed: 08/08/23 19:48> ROS Other: All systems not noted in ROS Statement are negative. <Anuel Masterson - Last Filed: 08/14/23 22:56> ROS Statement: Those systems with pertinent positive or pertinent negative responses have been documented in the HPI. Past Medical History Past Medical History: Asthma, GERD/Reflux, Hyperlipidemia, Rheumatoid Arthritis (RA), Thyroid Disorder Additional Past Medical History / Comment(s): Hashimotos Thyroiditis-currently out of synthroid, lung infection for about 3 months-has taken A/B, finishing steroids, possibly RA lung issues per pt. History of Any Multi-Drug Resistant Organisms: None Reported Date of last positivie culture/infection: 05/02/2014 MDRO Source:: Urine Past Surgical History: Adenoidectomy, Hysterectomy, Joint Replacement, Orthopedic Surgery, Tonsillectomy Additional Past Surgical History / Comment(s): Hx sinus surgery nov 2013, right wrist replacement, left knee replaced 12-22-21 Past Anesthesia/Blood Transfusion Reactions: Motion Sickness, Postoperative Nausea & Vomiting (PONV) Past Psychological History: Anxiety, Depression Smoking Status: Never smoker Past Alcohol Use History: None Reported Past Drug Use History: None Reported - Past Family History Mother Family Medical History: Cancer, COPD Additional Family Medical History / Comment(s): Daughter - bipolar. <Raúl Means - Last Filed: 08/08/23 19:48> General Exam Limitations: no limitations General appearance: alert, in no apparent distress Eye exam: Present: normal appearance Back exam: Present: normal inspection Neurological exam: Present: alert <Raúl Means - Last Filed: 08/08/23 19:48> Course Vital Signs 08/08/23 08/08/23 18:14 23:57 Temperature 98.4 F 98.7 F Pulse Rate 108 H 87 Respiratory 20 16 Rate Blood Pressure 159/83 120/88 O2 Sat by Pulse 99 97 Oximetry Medical Decision Making <Gabi Meansshua - Last Filed: 08/08/23 19:48> <NicoleAnuel rea - Last Filed: 08/14/23 22:56> - Medical Decision Making Quicknote portion performed. Signed Raúl Means PA-C (Raúl Means) Patient had L-spine x-ray which I interpreted as not showing any acute bony injury. Patient had pelvis x-ray which I interpreted as showing avulsion fracture near the pubic symphysis on the left side. Patient had ankle x-ray that I interpreted as not showing acute bony injury Patient had foot x-ray which I interpreted as not showing acute bony injury Was pt. sent in by a medical professional or institution (, PA, [employer]ER, urgent care, hospital, or longterm...) When possible be specific @ -[No] Did you speak to anyone other than the patient for history (EMS, parent, family, police, friend...)? What history was obtained from this source @ -[No] Did you review nursing and triage notes (agree or disagree)? Why? @ -[I reviewed and agree with nursing and triage notes] Were old charts reviewed (outside hosp., previous admission, EMS record, old EKG, old radiological studies, urgent care reports/EKG's, longterm records)? Report findings @ -[No old charts were reviewed] Differential Diagnosis (chest pain, altered mental status, abdominal pain women, abdominal pain men, vaginal bleeding, weakness, fever, dyspnea, syncope, headache, dizziness, GI bleed, back pain, seizure, CVA, palpatations, mental health, musculoskeletal)? @ -[Differential Musculoskeletal Muscular strain, contusion, ligament sprain, fracture, arthritis, septic arthritis, bursitis, cellulitis, muscle spasm, nerve compression, DVT, arterial occlusion, herpes zoster, electrolyte abnormality, tumor.... This is not meant to be in all inclusive list EKG interpreted by me (3pts min.). @ -[As above] X-rays interpreted by me (1pt min.). @ -[I interpreted as above CT interpreted by me (1pt min.). @ -[None done] U/S interpreted by me (1pt. min.). @ -[None done] What testing was considered but not performed or refused? (CT, X-rays, U/S, labs)? Why? @ -[None] What meds were considered but not given or refused? Why? @ -[None] Did you discuss the management of the patient with other professionals (professionals i.e. , PA, SHE[employer], lab, RT, psych nurse, social service liaison, tool analyst, teacher, senior compliance officer, lead case manager)? Give summary @ -[No] Was smoking cessation discussed for >3mins.? @ -[No] Was critical care preformed (if so, how long)? @ -[No] Were there social determinants of health that impacted care today? How? (Homelessness, low income, unemployed, alcoholism, drug addiction, transportation, low edu. Level, literacy, decrease access to med. care, snf, rehab)? @ -[No] Was there de-escalation of care discussed even if they declined (Discuss DNR or withdrawal of care, Hospice)? DNR status @ -[No] What co-morbidities impacted this encounter? (DM, HTN, Smoking, COPD, CAD, Cancer, CVA, ARF, Chemo, Hep., AIDS, mental health diagnosis, sleep apnea, morbid obesity)? @ -[None] Was patient admitted / discharged? Hospital course, mention meds given and route, prescriptions, significant lab abnormalities, going to OR and other pertinent info. @ -[Patient is 58-year-old woman who presents for evaluation after ground-level fall. The patient found to have small avulsion fracture near the pubic symphysis. Discussed findings with the patient and she is going to follow with orthopedics. Patient to be nonweightbearing until seen by orthopedics. Undiagnosed new problem with uncertain prognosis? @ -[No] Drug Therapy requiring intensive monitoring for toxicity (Heparin, Nitro, Insulin, Cardizem)? @ -[No] Were any procedures done? @ -[No] Diagnosis/symptom? @ -[Acute fall injury Acute avulsion fracture near pubic symphysis Acute, or Chronic, or Acute on Chronic? @ -[Acute Uncomplicated (without systemic symptoms) or Complicated (systemic symptoms)? @ -[Uncomplicated Side effects of treatment? @ -[No] Exacerbation, Progression, or Severe Exacerbation? @ -[No] Poses a threat to life or bodily function? How? (Chest pain, [place], NH, pneumonia, PE, COPD, DKA, ARF, appy, cholecystitis, CVA, Diverticulitis, Homicidal, Suicidal, threat to staff... and all critical care pts) @ -[No] (Anuel Masterson) Disposition <Raúl Means - Last Filed: 08/08/23 19:48> Is patient prescribed a controlled substance at d/c from ED?: No <Anuel Masterson - Last Filed: 08/14/23 22:56> Clinical Impression: Fall, Pubic bone pain, Leg pain, Lumbar radicular pain Disposition: HOME SELF-CARE Condition: Good Instructions (If sedation given, give patient instructions): Pelvic Avulsion Fractures in Adults (ED), Fall Prevention (ED) Prescriptions: predniSONE [Deltasone] 20 mg PO BID #8 tab Referrals: Stanley العلي MD [Primary Care Provider] - 1-2 days
--- NOTE | 2023-08-08 21:56 | XR ---
EXAMINATION TYPE: XR ankle complete LT, XR foot complete LT DATE OF EXAM: 08/08/2023 9:41 PM INDICATION: Patient age:Female; 58 years old; Reason for study: s/p fall. pain; PHH. COMPARISON: None TECHNIQUE: The left foot and ankle are imaged in AP, lateral, and oblique projections. FINDINGS: There is no evidence of acute osseous pathology. No dislocation. Chronic appearing subluxation of the first through fourth PIP joints with associated osseous erosive changes of the metatarsal heads. Deg enerative changes of the first MTP joint. Kager's fat pad is intact. Mild soft tissue swelling around the ankle and dorsal midfoot. No radiopaque foreign bodies are identified. IMPRESSION: 1. No evidence of acute fracture. 2. Subcutaneous swelling around the ankle and dorsal midfoot. 3. Chronic appearing subluxation of the first through fourth PIP joints with associated osseous erosi ve changes. Correlate for rheumatoid arthritis.
--- NOTE | 2023-08-08 21:57 | XR ---
EXAMINATION TYPE: XR pelvis AP view DATE OF EXAM: 08/08/2023 9:51 PM INDICATION: Patient age:Female; 58 years old; Reason for study: s/p fall. pain; PHH. COMPARISON: None TECHNIQUE: The pelvis was examined in a single projection. FINDINGS: There is no evidence of dislocation. Acute minimally displaced left superior pubic ramus av ulsion fracture. There is no soft tissue abnormality. No abnormal calcifications are present. Multil evel degenerative changes of the lower spine. IMPRESSION: Acute minimally displaced left superior pubic ramus avulsion fracture.
--- NOTE | 2023-08-08 21:59 | XR ---
EXAMINATION TYPE: XR sacrum coccyx DATE OF EXAM: 08/08/2023 9:51 PM INDICATION: Patient age:Female; 58 years old; Reason for study: s/p fall. pain; PHH. COMPARISON: Pelvic radiograph of the same day. TECHNIQUE: The sacrum/coccyx was examined in 3 projections. FINDINGS: No dislocation. The SI joints appear intact. Acute avulsion fracture that is minimally disp laced involving the left superior pubic ramus. The sacrum/coccyx appears intact There is no soft tiss ue abnormality. No abnormal calcifications are present. Multilevel degenerative changes of the lower spine. IMPRESSION: Acute minimally displaced avulsion fracture of the left superior pubic ramus.
--- NOTE | 2023-08-08 22:00 | XR ---
EXAMINATION TYPE: XR lumbar spine 2 or 3V DATE OF EXAM: 08/08/2023 CLINICAL HISTORY: pain TECHNIQUE: Three views of the lumbar spine are submitted. COMPARISON: None. FINDINGS: There are 5 lumbar type vertebral bodies identified. No acute fracture. Grade 1 anterolisthesis of L4 on L5. Vertebral body heights are within normal limits. Disc spaces are within normal limits. The overlying soft tissue appears unremarkable. IMPRESSION: 1. No acute fracture of the lumbar spine. 2. Grade 1 anterolisthesis of L4 on L5.
[2023-08-09 00:04] VITALS: BP 120/88; PULSE 87; RESP 16; TEMP 98.7
== END 2023-08-09 01:34 | disposition home or self-care (01) ==
LOC: EC 18:08
DX: S32.502A Unspecified fracture of left pubis, initial encounter for closed fracture (principal); M54.16 Radiculopathy, lumbar region; M79.605 Pain in left leg; J45.909 Unspecified asthma, uncomplicated; E06.3 Autoimmune thyroiditis; F32.A Depression, unspecified; F41.9 Anxiety disorder, unspecified; Z79.899 Other long term (current) drug therapy; Z79.890 Hormone replacement therapy; Z91.041 Radiographic dye allergy status; Z88.1 Allergy status to other antibiotic agents; Z88.5 Allergy status to narcotic agent; Z88.8 Allergy status to other drugs, medicaments and biological substances; W19.XXXA Unspecified fall, initial encounter
CPT/HCPCS: 72100; 72170; 72220; 99284

== ENCOUNTER → 2023-08-28 | Outpatient (CLI) | payer MEDICARE ==
[2023-08-28 15:58] LABS: ALT 27 U/L (8-44); AST 15 U/L (13-35); Alkaline Phosphatase 173 U/L (41-126); Bilirubin, Conjugated <0.20 mg/dL (0.20-0.40); Bilirubin,Unconjugated >0.10 mg/dL (0.20-1.00); Globulin 1.6 g/dL (1.6-3.3); Total Bilirubin 0.3 mg/dL (0.3-1.2); Total Protein 5.6 g/dL (6.2-8.2)
[2023-08-28 18:15] LABS: Basophils # (M) 0 X 10*3/uL (0.00-0.10); HCT 40.6 % (37.2-46.3); HGB 12.4 g/dL (12.0-15.0); MCH 30.3 pg (27.0-32.0); MCHC 30.5 g/dL (32.0-37.0); MCV 99.3 FL (80.0-97.0); NRBC Per 100 WBC 0 X 10*3/uL (0.00-0.01); Platelet Count 260 X 10*3/uL (140-440); RBC 4.09 X 10*6/uL (4.10-5.20); RDW 17.2 % (11.5-14.5); WBC 8.11 X 10*3/uL (4.50-10.00)
[2023-08-28 18:34] LABS: Anisocytosis (M) 2+; Eosinophils # (M) 0.32 X 10*3/uL (0.04-0.35); Lymphocytes # (M) 2.51 X 10*3/uL (0.90-5.00); Macrocytosis (M) 2+; Monocytes # (M) 0.65 X 10*3/uL (0.20-1.00); Neutrophils # (M) 4.62 X 10*3/uL (1.80-7.70); Neutrophils % (M) 57 %
== END | disposition home or self-care (01) ==
LOC: LABWHC1 10:06
PROVIDERS: ATTEND Internal Medicine
DX: M05.79 Rheumatoid arthritis with rheumatoid factor of multiple sites without organ or systems involvement (principal); D84.9 Immunodeficiency, unspecified
CPT/HCPCS: 36415; 80076; 82565; 85025; 86480

== ENCOUNTER → 2023-09-05 | Outpatient (CLI) | payer MEDICARE ==
--- NOTE | 2023-09-05 09:00 | MR ---
EXAMINATION TYPE: MR lumbar spine wo con DATE OF EXAM: 09/05/2023 7:13 AM CLINICAL INDICATION:Female, 58 years old with history of M54.59 Other low back pain M43.16 Spondyloli sthesis; PHH, COMPARISON: None TECHNIQUE: Multi planar, multi sequence imaging was performed utilizing: T1-weighted, T2-weighted, a nd turbo inversion recovery imaging of the lumbar spine. IV Contrast: (None if empty) FINDINGS: Alignment: The lumbar vertebral bodies have preserved heights with grade 1 anterolisthesis of L5 on S 1. Cord: The conus medullaris and the distal spinal cord appear unremarkable with regards to their signa l intensity and morphology. Bones/Discs: Mild degeneration changes throughout the spine with osteophyte formation and facet joint arthropathy. Intervertebral disc signal is maintained. Remote fracture of the S1-S2 of the sacrum dobson ggested with cortical step-off. T12-L1: No evidence of significant spinal canal stenosis or neural foraminal stenosis. L1-L2: No evidence of significant spinal canal stenosis or neural foraminal stenosis. L2-L3: No evidence of significant spinal canal stenosis or neural foraminal stenosis. L3-L4: No evidence of significant spinal canal stenosis or neural foraminal stenosis. L4-L5: Disc uncovering from grade 1 anterolisthesis and facet joint arthropathy with moderate to kenji re spinal canal stenosis and moderate bilateral neural foraminal stenosis. Bilateral facet joint effu sions. L5-S1: Disc bulge and facet joint arthropathy result in mild spinal canal and mild bilateral neural f oraminal stenosis. No significant spinal canal or neural foraminal stenosis in the remainder of the visualized levels. Other findings: None. IMPRESSION: 1. No definitive evidence of disc herniation or significant spinal canal stenosis. 2. Grade 1 anterolisthesis of L4 and L5 with moderate to severe spinal canal stenosis and moderate b ilateral neural foraminal stenosis. 3. Suggestion of remote S1/S2 fracture. 4. Mild disc degeneration with associated osteoarthritic changes.
--- NOTE | 2023-09-05 21:01 | MR ---
EXAMINATION: MR pelvis wo con DATE OF EXAM: 09/05/2023 COMPARISON: Radiographs of the pelvis and sacrum 08/08/2023 HISTORY: Pain. TECHNIQUE: Multiplanar, multisequence images of the bony pelvis were acquired without contrast. FINDINGS: BONES/MARROW: T1 and corresponding high T2 signal within the left pubic bone body, consistent with dobson bacute nondisplaced fracture. Low T1 and intermediate/high T2 signal in the right sacral alar, consis tent with subacute insufficiency fracture. No joint effusion. SOFT TISSUES: Increased signal throughout the left adductor musculature, consistent with muscle strai ns. Additionally, there is a 1 cm fluid density structure near the origin of the adductors, consisten t with fluid collection and/or hematoma in the setting of a grade 2 muscle strain. There is slight ed sebastián within the right adductor muscles, consistent with grade 1 muscle strain. No anatomic variant. No bursal distention. No fluid collection. NEUROVASCULAR: Visualized neurovascular structures are normal. OTHER: Normal. No mass. No lymphadenopathy. IMPRESSION: 1. Subacute nondisplaced fracture left pubic bone body. 2. Subacute insufficiency fracture right sacral alar. 3. Grade 2 muscle strain left the adductor musculature. 4. Grade 1 muscle strain right adductor musculature.
== END | disposition home or self-care (01) ==
LOC: RADMRIMAIN 05:58
PROVIDERS: ATTEND Orthopaedic Surgery Orthopaedic Surgery of the Spine
DX: M48.061 Spinal stenosis, lumbar region without neurogenic claudication (principal); M43.16 Spondylolisthesis, lumbar region; M47.26 Other spondylosis with radiculopathy, lumbar region; M51.16 Intervertebral disc disorders with radiculopathy, lumbar region; M99.73 Connective tissue and disc stenosis of intervertebral foramina of lumbar region; R53.1 Weakness
CPT/HCPCS: 72148; 72195

== ENCOUNTER → 2023-10-25 | Outpatient (CLI) | payer MEDICARE ==
[2023-10-25 15:29] LABS: ALT 20 U/L (8-44); AST 17 U/L (13-35); Albumin 4.5 g/dL (3.8-4.9); Albumin/Globulin Ratio 1.96 Ratio (1.60-3.17); Alkaline Phosphatase 78 U/L (41-126); Bilirubin, Conjugated <0.20 mg/dL (0.20-0.40); Carbon Dioxide 24.3 mmol/L (21.6-31.8); Chloride 102 mmol/L (96-109); Globulin 2.3 g/dL (1.6-3.3); Glucose 85 mg/dL (70-110); Sodium 142 mmol/L (135-145); Total Bilirubin 0.3 mg/dL (0.3-1.2); Total Protein 6.8 g/dL (6.2-8.2)
[2023-10-25 15:33] LABS: Basophils # (A) 0.08 X 10*3/uL (0.00-0.10); Basophils % (A) 0.5 %; Eosinophils # (A) 0.02 X 10*3/uL (0.04-0.35); Eosinophils % (A) 0.1 %; HCT 41.3 % (37.2-46.3); HGB 12.8 g/dL (12.0-15.0); Lymphocytes # (A) 1.21 X 10*3/uL (0.90-5.00); Lymphocytes % (A) 8.1 %; MCH 30.2 pg (27.0-32.0); MCV 97.4 FL (80.0-97.0); Mean Platelet Volume 10.3 FL (9.5-12.2); Monocytes # (A) 0.42 X 10*3/uL (0.20-1.00); Monocytes % (A) 2.8 %; NRBC Per 100 WBC 0 X 10*3/uL (0.00-0.01); Neutrophils # (A) 13.01 X 10*3/uL (1.80-7.70); Neutrophils % (A) 86.7 %; Platelet Count 374 X 10*3/uL (140-440); RBC 4.24 X 10*6/uL (4.10-5.20); RDW 13.4 % (11.5-14.5); WBC 15.01 X 10*3/uL (4.50-10.00)
[2023-10-25 15:43] LABS: Erythrocyte Sedimentation Rate 15 mm/Hr (0-30)
[2023-10-25 16:37] LABS: Bilirubin,Unconjugated >0.1 mg/dL (0.2-1.0)
== END | disposition home or self-care (01) ==
LOC: LABWHC1 10:16
PROVIDERS: ATTEND Internal Medicine
DX: D84.9 Immunodeficiency, unspecified (principal); R74.8 Abnormal levels of other serum enzymes
CPT/HCPCS: 36415; 80053; 82248; 82306; 83516; 85025; 85652; 86140

== ENCOUNTER 2024-07-19 09:28 | Day surgery (SDC) | payer MEDICARE ==
[2024-07-15 11:20] VITALS: BMI 19.2
[~2024-07-19 09:28] MED LIST changes: -DEXAMETHASONE SOD PHOSPHATE 4 MG/ML 1 ML VIAL IV ONE; -HYDROmorphone 0.5 MG/0.5 ML SYRINGE IVP PRN; -LACTATED RINGERS 1,000 ML IV SCH; -LIDOCAINE 1% (10MG/ML) FOR IV START INTRADERMA PRN; -ONDANSETRON 4 MG/2 ML VIAL IVP PRN; -droPERidol 5 MG/2 ML VIAL IVP ONE; +fentaNYL (PF) 50 MCG/ML 2 ML AMP IV PRN
[2024-07-19] MEDS: IV FLUID CONTINUATION 1,000 ML IV ONE (09:43)
[2024-07-19 10:04] VITALS: RESP 16
[2024-07-19] MEDS: DEXAMETHASONE SOD PHOSPHATE 4 MG/ML 1 ML VIAL IV ONE (10:23)
[2024-07-19] MEDS: ONDANSETRON 4 MG/2 ML VIAL IVP ONE (10:23)
[2024-07-19] MEDS: LACTATED RINGERS 1,000 ML IV SCH (10:24)
[2024-07-19] MEDS: SCOPOLAMINE 1 MG/72 HR PATCH TRANSDERM ONE (10:24)
[2024-07-19] MEDS: MIDAZOLAM 2 MG/2 ML VIAL IV PRN (10:31)
[2024-07-19] MEDS ORDERED: ROPIVACAINE 5 MG/ML 30 ML VIAL ONE (11:51)
[2024-07-19] MEDS ORDERED: fentaNYL (PF) 50 MCG/ML 2 ML AMP ONE (11:51)
[2024-07-19] MEDS ORDERED: LIDOCAINE 1% INJ 10MG/ML (20 ML MDV) ONE (11:51)
[2024-07-19] MEDS ORDERED: SUCCINYLCHOLINE CHLORIDE 200 MG/10 ML VIAL IV ONE (11:51)
[2024-07-19] MEDS ORDERED: PROPOFOL 10 MG/ML 20 ML VIAL IV ONE (11:51)
[2024-07-19] MEDS ORDERED: SODIUM CHLORIDE 0.9% (PF) 10 ML VIAL ONE (11:51)
[2024-07-19] MEDS: ceFAZolin 1,000 MG in SODIUM CHLORIDE 0.9% 1,000 ML IRRIGATION ONE (11:56)
--- NOTE | 2024-07-19 13:25 | P.ANPRN ---
Procedure Note - Anesthesia - Nerve Block Performed Left Adductor Canal Single Time Out Performed: Yes (1030) Date of Procedure: 07/19/24 Procedure Start Time: 10:37 Procedure Stop Time: 10:41 Location of Patient: PreOp Indication: Acute Post-Operative Pain, Requested by Surgeon Specifically requested for management of pain by DrHeath: Gallito Cueto Sedation Type: Sedate with meaningful contact maintained Preparation: Sterile Prep Position: Supine Catheter: None Needle Types: Pajunk Needle Gauge: 21 Ultrasound used to visualize needle placement: Yes Ultrasound used to observe medication spread: Yes Injectate: 0.5% Ropivacaine (see comment for volume) (15cc+10cc nacl pf) Blood Aspirated: No Pain Paresthesia on Injection Noted: No Resistance on Injection: Normal Image Stored and Saved: Yes Events: Uneventful and Well Tolerated
--- NOTE | 2024-07-19 13:25 | P.ANPRN ---
Procedure Note - Anesthesia - Nerve Block Performed Left Popliteal Single Time Out Performed: Yes (1030) Date of Procedure: 07/19/24 Procedure Start Time: : Procedure Stop Time: 10:36 Location of Patient: PreOp Indication: Acute Post-Operative Pain, Requested by Surgeon Specifically requested for management of pain by DrHeath: Gallito Cueto Sedation Type: Sedate with meaningful contact maintained Preparation: Sterile Prep Position: Right Lateral Catheter: None Needle Types: Pajunk Needle Gauge: 21 Ultrasound used to visualize needle placement: Yes Ultrasound used to observe medication spread: Yes Injectate: 0.5% Ropivacaine (see comment for volume) (15cc+10cc nacl pf) Blood Aspirated: No Pain Paresthesia on Injection Noted: No Resistance on Injection: Normal Image Stored and Saved: Yes Events: Uneventful and Well Tolerated
[2024-07-19 13:43] VITALS: TEMP 97.2
--- NOTE | 2024-07-19 13:53 | P.OP ---
Date of Procedure: 07/19/24 Preoperative Diagnosis: 1. Hallux valgus left foot 2. Subluxation of lesser metatarsal phalangeal joints 2 through 5 left foot Postoperative Diagnosis: 1. Same 2. Same Procedure(s) Performed: 1. First metatarsal phalangeal joint arthrodesis left foot 2. Elliott metatarsal head resections 2 through 5 left foot Implants: Arthrex MaxForce plate Anesthesia: SOFÍAA Surgeon: Gallito Cueto Estimated Blood Loss (ml): 5 Pathology: none sent Condition: stable Disposition: PACU Description of Procedure: Prior to the patient being brought to the operating room, anesthesia administered a nerve block on the surgical extremity. Then the patient was brought into the operating room and placed on table in the supine position. Timeout was taken to confirm correct patient identifiers, correct lateral surgery, and correct procedure. Once the staff in the room were in agreement with the timeout, the patient was induced and placed under general anesthesia. A well-padded tourniquet was placed on the ankle and then the foot was prepped and draped in the usual manner. The foot was exsanguinated and the tourniquet inflated to 250 mmHg. Attention was directed over the dorsal aspect of the first metatarsal phalangeal joint, where a linear incision was made between the long extensor tendon and the neurovascular structures. The incision was deepened down to the subcutaneous layer careful to identify, avoid, and retract any neurovascular structures and cauterize any bleeding vessels. Blunt dissection was continued through the subcutaneous layer down to the periosteum and capsule. A linear periosteal and capsular incision was made medial to the long extensor tendon. Those tissues were then sharply reflected off of the first metatarsal head and shaft as well as the base of the proximal phalanx. The soft tissue was released around the joint so that the joint could be mobilized and accessed. A guidewire was placed through the central aspect of the first metatarsal head parallel to the long access and within the medullary canal. Appropriate size reamers were used to shape the first metatarsal head. Then a concave reamer was inserted over the guidewire and used to remove the articular cartilage and subchondral bone. The wire was removed was used to aggressively fenestrate the head of the first metatarsal. The guidewire was then inserted at the central aspect of the articular surface of the base of the proximal phalanx. The wire was advanced parallel to the long access and within the medullary canal. The convex reamer was then used to remove the articular cartilage and subchondral bone. The guidewire was removed and used to fenestrate the surface. The wound was thoroughly irrigated with antibiotic saline. Arthrex Arthrocell was placed between the arthrodesis segments. A 0 bend first metatarsal phalangeal joint fusion plate was then positioned dorsally over the site. Temporary fixation was used to hold the plate in place. Fluoroscopy was used to check the placement of the plate as well as the joint alignment. Once both positions were satisfactory, a combination of locking and nonlocking screws were placed in the distal part of the plate into the proximal phalanx. The position of the joint and plate were checked again under fluoroscopy. Once both were satisfactory, a wire was placed in the base of the proximal phalanx and across the arthrodesis site to maintain the alignment. The offset drill guide was then placed in the compression slot of the plate. The guide was removed and then the compression device was inserted through the drill hole and engaged with the plate. The compression device was turned to further compress the joint. While holding in compression, another threaded olive wire was used to hold it in place. A drill hole through the proximal compression slot was then made and a nonlocking screw was inserted and tightened until it engaged the plate and provided further compression across the arthrodesis site. A nonlocking screw was then placed in the drill hole in the proximal aspect of the plate closest to the joint line. The final screw was a locking screw placed in the most proximal hole the plate. Final fluoroscopic imaging showed proper placement of all hardware, maintaining correction of the joint, and excellent compression across the arthrodesis site. The temporary fixation wire was removed and the joint thoroughly irrigated with antibiotic saline. Capsule closure was done with 2-0 Vicryl and skin closure done with 3-0 nylon. utilizing fluoroscopic visualization, metallic marker was used to jaspreet the space between the second and third metatarsal heads as well as the fourth and fifth for incision placement. Once that was determined lines for the incisions were made in the second and fourth webspaces keep her appropriate distance between the incisions. The incisions are made through the skin down to the subcutaneous tissue, careful to identify, avoid, and retract any neurovascular structures and cauterize any bleeding vessels. Blunt dissection was continued being laterally over the capsules of the respective metatarsal phalangeal joints. Lambert were made on the metatarsal necks further areas a resection to maintain the parabola of the metatarsals. The cuts were made just proximal to the where the base of the proximal phalanges were dorsally dislocated onto the metatarsals. Once the resections were complete the heads were mobilized and sharply dissected from surrounding soft tissue and removed. Final fluoroscopy showed all resection of all the metatarsal heads and maintenance of the parabola. All wounds were thoroughly irrigated with antibiotic saline. Deep closure done with 2-0 Vicryl. Skin closure done with 3-0 nylon. An Arthrex jumpstart dressing was placed over each incision bulky dry dressings applied to the foot. The tourniquet was released and capillary refill return to all digits on the foot. The patient was then placed in a well-padded, well molded last or posterior mold/sugar tong splint. Ankle and foot were held in neutral position until the splint was dried. Anesthesia was then reversed and the patient was taken recovery with vital signs stable.
[2024-07-19 14:41] VITALS: BP 118/82; PULSE 85
== END 2024-07-19 15:17 | disposition home or self-care (01) ==
LOC: OR 09:28
PROVIDERS: ATTEND Podiatrist
CPT/HCPCS: 64445; 64447

== ENCOUNTER → 2024-12-17 | Outpatient (CLI) | payer MEDICARE ==
[2024-12-17 15:55] LABS: INR 0.9 (<1.2)
[2024-12-17 15:56] LABS: Partial Thromboplastin Time 20.8 sec (22.0-30.0)
[2024-12-17 18:49] LABS: HCT 38.9 % (37.2-46.3); HGB 11.8 g/dL (12.0-15.0); MCH 28.1 pg (27.0-32.0); MCHC 30.3 g/dL (32.0-37.0); MCV 92.6 FL (80.0-97.0); Mean Platelet Volume 10.1 FL (9.5-12.2); NRBC Per 100 WBC 0 X 10*3/uL (0.00-0.01); Platelet Count 503 X 10*3/uL (140-440); RDW 13.5 % (11.5-14.5); WBC 8.72 X 10*3/uL (4.50-10.00)
[2024-12-17 19:23] LABS: ALT 19 U/L (8-44); AST 19 U/L (13-35); Albumin 4.2 g/dL (3.8-4.9); Albumin/Globulin Ratio 1.68 Ratio (1.60-3.17); Alkaline Phosphatase 150 U/L (41-126); BUN/Creat Ratio 20.75 Ratio (12.00-20.00); Blood Urea Nitrogen 16.6 mg/dL (9.0-27.0); Carbon Dioxide 25.4 mmol/L (21.6-31.8); Chloride 101 mmol/L (96-109); Globulin 2.5 g/dL (1.6-3.3); Glucose 133 mg/dL (70-110); Potassium 4.3 mmol/L (3.5-5.5); Sodium 139 mmol/L (135-145); Total Bilirubin <0.2 mg/dL (0.3-1.2); Total Protein 6.7 g/dL (6.2-8.2)
== END | disposition home or self-care (01) ==
LOC: LABPAT 15:05
PROVIDERS: ATTEND Orthopaedic Surgery Sports Medicine
DX: Z01.812 Encounter for preprocedural laboratory examination (principal); Z22.322 Carrier or suspected carrier of Methicillin resistant Staphylococcus aureus; M19.011 Primary osteoarthritis, right shoulder
CPT/HCPCS: 80053; 85027; 85610; 85730; 87070; 93005

== ENCOUNTER 2025-01-09 05:47 | Day surgery (SDC) | payer MEDICARE ==
[~2025-01-09 05:47] MED LIST changes: +LIDOCAINE 1% (10MG/ML) FOR IV START INTRADERMA PRN; +ONDANSETRON 4 MG/2 ML VIAL IVP PRN; +TRANEXAMIC 1,000 MG/100ML-NACL 1,000 MG in SALINE 1 100ML.BAG IVPB PRN; -fentaNYL (PF) 50 MCG/ML 2 ML AMP IV PRN
[2025-01-09] MEDS: DEXTROSE 50% SYRINGE 50 ML IVP STA (06:47)
[2025-01-09 06:51] LABS: Glucose,Whole Blood 63 mg/dL (70-110)
[2025-01-09] MEDS: MELOXICAM 7.5 MG TAB PO PRN (06:52)
[2025-01-09] MEDS: ACETAMINOPHEN TAB 500 MG TAB PO PRN (06:53)
[2025-01-09 06:56] LABS: HCT 33.2 % (34.0-46.0); HGB 10.6 gm/dL (11.4-16.0); Hypochromasia Slight; MCH 28.4 pg (25.0-35.0); MCHC 31.9 g/dL (31.0-37.0); MCV 88.9 fL (80.0-100.0); Mean Platelet Volume 7.6; Platelet Count 340 k/uL (150-450); RBC 3.74 m/uL (3.80-5.40); RDW 14.4 % (11.5-15.5); WBC 6.8 k/uL (3.8-10.6)
[2025-01-09] MEDS: DEXAMETHASONE SOD PHOSPHATE 4 MG/ML 1 ML VIAL IV ONE (07:01)
[2025-01-09] MEDS: ONDANSETRON 4 MG/2 ML VIAL IVP ONE (07:01)
[2025-01-09] MEDS: LACTATED RINGERS 1,000 ML IV SCH ×2 (07:02→10:43)
[2025-01-09 07:08] LABS: Glucose,Whole Blood 209 mg/dL (70-110)
[2025-01-09] MEDS: MIDAZOLAM 2 MG/2 ML VIAL IV ONE (07:25)
[2025-01-09] MEDS: fentaNYL (PF) 50 MCG/ML 2 ML AMP IV PRN (07:25)
[2025-01-09] MEDS ORDERED: DEXAMETHASONE SOD PHOSPHATE 4 MG/ML 1 ML VIAL ONE (07:33)
[2025-01-09] MEDS ORDERED: GLYCOPYRROLATE 0.2 MG/ML 2 ML VIAL ONE (07:33)
[2025-01-09] MEDS ORDERED: ROPIVACAINE 5 MG/ML 30 ML VIAL ONE (07:33)
[2025-01-09] MEDS ORDERED: fentaNYL (PF) 50 MCG/ML 2 ML AMP ONE (07:33)
[2025-01-09] MEDS ORDERED: SUCCINYLCHOLINE CHLORIDE 200 MG/10 ML VIAL IV ONE (07:33)
[2025-01-09] MEDS ORDERED: TRANEXAMIC 1,000 MG/100ML-NACL PREMIX BAG ONE (07:33)
[2025-01-09] MEDS ORDERED: PHENYLEPHRINE 10 MG/ML VIAL ONE (07:33)
[2025-01-09] MEDS ORDERED: PROPOFOL 10 MG/ML 20 ML VIAL IV ONE (07:33)
[2025-01-09] MEDS ORDERED: ROCURONIUM 10 MG/ML (5 ML VIAL) IV ONE (07:33)
[2025-01-09] MEDS ORDERED: NEOSTIGMINE 1 MG/ML 10 ML VIAL ONE (07:33)
[2025-01-09] MEDS ORDERED: LIDOCAINE 1% INJ 10MG/ML (20 ML MDV) ONE (07:33)
[2025-01-09] MEDS ORDERED: MIDAZOLAM 2 MG/2 ML VIAL ONE (07:33)
[2025-01-09] MEDS: IV FLUID CONTINUATION 1,000 ML IV ONE (07:37)
--- NOTE | 2025-01-09 08:34 | P.ANPRN ---
Procedure Note - Anesthesia - Nerve Block Performed Right Interscalene Single Time Out Performed: Yes (724) Date of Procedure: 01/09/25 Procedure Start Time: Procedure Stop Time: Location of Patient: PreOp Indication: Acute Post-Operative Pain, Requested by Surgeon Specifically requested for management of pain by DrHeath: Zhen Nation Sedation Type: Sedate with meaningful contact maintained Preparation: Sterile Prep Position: Supine Catheter: None Needle Types: Pajunk Needle Gauge: 21 Ultrasound used to visualize needle placement: Yes Ultrasound used to observe medication spread: Yes Injectate: 0.5% Ropivacaine (see comment for volume) (25cc) Blood Aspirated: No Pain Paresthesia on Injection Noted: No Resistance on Injection: Normal Image Stored and Saved: Yes Events: Uneventful and Well Tolerated
[2025-01-09 08:46] LABS: Glucose,Whole Blood 95 mg/dL (70-110)
[2025-01-09] MEDS: VANCOMYCIN 1,000 MG VIAL MISCELLANE ONE (08:49)
[2025-01-09] MEDS ORDERED: HYDROmorphone 0.5 MG/0.5 ML SYRINGE IVP PRN ×2 (09:50)
[2025-01-09] MEDS ORDERED: ONDANSETRON 4 MG/2 ML VIAL IVP PRN (09:50)
[2025-01-09] MEDS ORDERED: SENNOSIDES-DOCUSATE SODIUM 1 EACH TAB PO PRN (09:50)
[2025-01-09] MEDS ORDERED: HYDROmorphone 1 MG/ML 1 ML SYRINGE IVP PRN (09:50)
[2025-01-09] MEDS ORDERED: HYDROcodone/APAP 10-325MG 1 EACH TAB PO PRN ×2 (09:53)
[2025-01-09 10:22] LABS: Glucose,Whole Blood 102 mg/dL (70-110)
--- NOTE | 2025-01-09 10:40 | OP ---
OPERATIVE REPORT DATE OF SERVICE : 01/09/2025 PREOPERATIVE DIAGNOSIS: Right advanced rotator cuff tear arthropathy. POSTOPERATIVE DIAGNOSIS: Right advanced rotator cuff tear arthropathy. OPERATION: Right reverse total shoulder arthroplasty. ANESTHESIA: General endotracheal. ESTIMATED BLOOD LOSS: 100 mL. DRAINS: None. COMPLICATIONS: None apparent. DISPOSITION: To postanesthesia care unit. INDICATIONS: Sheila is a very pleasant 59-year-old female with longstanding severe rheumatoid arthritis. She has severe right shoulder pain due to advanced rotator cuff arthropathy. Workup including x-rays, MRI revealed advanced rotator cuff arthropathy of the right shoulder. At this point, it was felt that she has failed conservative management. She would like to proceed with operative intervention. Risks of procedure were discussed with her in detail. These risks include, but are not limited to risk of infection, nerve damage, bleeding, pain, instability in the shoulder, loosening of the implants, and deep infection. There was also small risk of deep vein thrombosis which could lead to fatal pulmonary embolism. The patient understood these risks. All of her questions with regard to the risks of the procedure were answered to her satisfaction. An appropriate informed consent was obtained. DESCRIPTION OF PROCEDURE: The patient was identified in the preoperative holding area. Surgical site was marked by both the patient and myself. She was given 2 g of Ancef IV for prophylactic purposes. She was then transported to the operative suite. She was placed supine on the operating room table. General anesthetic was administered and dosed per the Anesthesia Department without apparent complication. Examination under anesthesia was then performed of the right shoulder. She had elevation to 120 degrees. External rotation to the side was to 30 degrees. The patient was then placed into the beach chair position and well-padded in preparation for surgery. Great care was taken to ensure that her circular cervical spine was in neutral alignment, well-padded and maintained in that way throughout the operative procedure. Great care was also taken to ensure that her legs were appropriately padded as well. The patient's right upper extremity was then prepped and draped in usual sterile fashion. Standard surgical pause was then undertaken to ensure that we were operating the correct site and that appropriate preoperative antibiotics had been given. All staff in room were in agreement, and we proceeded. The acromion AC joint clavicle and coracoid were marked with a surgical pen. A planned incision starting at the level of the clavicle and extending distally over the deltopectoral interval was approximately 1 cm lateral to the coracoid was marked with a surgical pen. The incision was then made with a 10-blade scalpel. Dissection was carried down sharply to the deltoid fascia. The deltopectoral interval was identified to the level of the clavicle. A small band retractor was then placed onto the proximal deltoid. I then released the deltoid fascia on the lateral aspect of the cephalic vein. The vein was left in its bed medially. The cephalic vein was preserved and protected throughout the entire case. I then identified the clavipectoral fascia. This was incised proximally to the level of the coracoacromial ligament. The coracoacromial ligament was left intact. I then used my finger to spread the interval between the conjoint tendon and the subscapularis. I felt for the axillary nerve, which was readily palpable. I then cleared the subacromial and subdeltoid spaces of bursal and scar tissue. I then utilized a Brown retractor to hold the deltoid and expose the humeral head. The humeral head was completely devoid of any rotator cuff attachment. The long head of the biceps tendon had traumatically ruptured as well. There was just a very small wisp of subscapularis attached very distally at the lesser tuberosity. The capsule was then released distally. This was done along the inferior neck in a vertical fashion to approximately the 6 o'clock position. Great care was taken to ensure the capsule was always visualized as it was released as to avoid injuring the axillary nerve. I then brought a Richardson airline pilot flight instructor with the arm externally rotated and abducted. I continued to release the capsule inferomedially to approximately the 4 o'clock position. I then proceeded with preparation of the humerus. I removed all the goat's wilkins osteophytes. I then removed the subchondral plate from the superior aspect of the humeral head utilizing a large rongeur. I then used a starting reamer to gain access to the humeral canal. This was approximately 1 cm medial to the rotator cuff insertion and 1 cm posterior to the bicipital groove. I then prepared the humeral canal with hand reaming. I started with a 6 mm reamer and incrementally increased until firm resistance was encountered at 9 mm. The reamer handle was then left in place. I then utilized a humeral resection guide set at 30 degrees of retrotorsion. The cutting block was then set at the prior insertion of rotator cuff. I then proceeded to osteotomize the head with an oscillating saw. Of note, the humeral head was severely deformed. I removed the resection guide and then completed the osteotomy. I then proceeded with trial stem placement. Trial size 9 was then broached into the canal starting with a 6 mm broach and incrementally increasing. The 9 mm trial broach was then left in place. I then proceeded with preparation of the glenoid. The Bhattman retractor was then placed on the posterior glenoid rim. The arm was then placed in approximately 80 degrees of abduction and in slight flexion on the Richardson stand. I then proceeded to remove the hypertrophic labrum to definitively identify the actual glenoid. Then, I used a mini base plate guide. This was placed flush on the glenoid. The starting pin was then inserted with approximately 10 degrees of inferior tilt. I then proceeded with reaming of the glenoid utilizing the mini base plate reamer. I was very careful as to do a minimal reaming as possible as to preserve as much subchondral bone as possible. I then had the human resources hr representative open a [employer] mini base plate. This was then impacted into the real glenoid. The starting pin was removed. I then measured for the length of the central screw. A 20 mm central screw was measured. I then placed a 20 mm central screw. It had a fairly good bite when it was firmly seated. I then proceeded to placing the peripheral locking screws. The inferior screw was a 20 mm screw. The superior screw was a 20 mm screw and the posterior screw was a 15 mm screw. There was not enough room to place an anterior locking screw. I then proceeded to place a 36 mm glenosphere. It was minimally offset inferiorly. The Hinojosa taper was dried and then the real glenosphere was then impacted onto the mini base plate. I then proceeded with trial reduction. We started with a standard tray and standard poly. It was a mildly difficult reduction. It was very stable throughout a range of motion once it was reduced. There was no impingement noted. I made a decision to proceed with a standard tray and a standard poly. The shoulder was then carefully redislocated. The wound was thoroughly irrigated with sterile saline solution with antibiotic added via pulse lavage. We also used the IrriSept antiseptic solution at this time. I had the human resources hr representative open a [employer] size 9 mini stem, a standard tray and a standard poly for 36 mm glenosphere. The real stem was then impacted into the proximal humerus in approximately 30 degrees of retrotorsion. The Hinojosa taper was dried and then the standard tray, standard poly was then impacted onto the real stem. The shoulder was again carefully reduced. Again, it was very mildly difficult reduction. It was very stable throughout a range of motion. There was no undue tension on the conjoint tendon. I felt for the axillary nerve at this time, which was readily palpable and seemingly uninjured. We then proceeded with closure. The wound was again thoroughly irrigated. We used the remaining IrriSept solution at this time. Approximately 500 mg of vancomycin powder was then placed deep. The deltopectoral interval was reapproximated with 0 Vicryl interrupted suture. The subcutaneous tissue was again irrigated and the remaining 500 mg of vancomycin powder was placed subcutaneously. The subcutaneous tissue was closed with 2-0 Vicryl interrupted suture and the skin was closed with a running 3-0 Quill suture. Dermabond was applied to the incision. Sterile dressing was applied. The patient's right upper extremity was placed in a standard sling. All sponge and needle counts were deemed correct prior to closure. The patient tolerated the procedure without apparent complication. She was transferred to the recovery room in stable condition. MMODL / IJN: [id number] /
--- NOTE | 2025-01-09 11:13 | XR ---
EXAMINATION TYPE: XR shoulder limited RT DATE OF EXAM: 01/09/2025 10:31 AM COMPARISON: None CLINICAL INDICATION: Female, 59 years old with history of post op; PHH, pain TECHNIQUE: XR shoulder limited RT; examined in AP, internally rotated and scapular Y projections. FINDINGS: Shoulder arthroplasty with hardware intact. Subcutaneous lucencies compatible with recent surgery. No evidence for fracture. Hardware appears in tact The remaining portions of the visualized chest are unremarkable. IMPRESSION: Post shoulder arthroplasty, no evidence for immediate postop complication. [facility], , 01/09/2025 11:11 AM
[2025-01-09 11:48] VITALS: RESP 16
[2025-01-09 12:51] VITALS: BP 134/71; PULSE 62; TEMP 97.7
[2025-01-09] MEDS: Pre Op ABX Message 1 EACH MISC MISCELLANE ONE (13:12)
[2025-01-09] MEDS: droPERidol 2.5 MG/ML VIAL IVP ONE (13:12)
--- NOTE | 2025-01-09 14:14 | P.CONS ---
History of Present Illness - Reason for Consult Consult date: 01/09/25 Medical management Requesting physician: Zhen Nation - Chief Complaint Right advanced rotator cuff tear arthropathy status post right reverse tota - History of Present Illness This is a pleasant 59-year-old female with rheumatoid arthritis, asthma,, g astroesophageal reflux disease, Anurag's thyroiditis, iron deficient anemia , anxiety, depression, marijuana use ,PONV,advanced right rotator cuff tear arthropathy, failed conservative management, status post right reverse total shoulder arthroplasty with nerve block, tolerated procedure well. Recently arrived to the floor. Sitting up in bed, wearing sling, family at bedside, pain controlled. Denies chest pain, palpitations or shortness of breath. Denies nausea vomiting or diarrhea. Maintaining O2 sats of 100% on room air. Afebrile, normal WBC. Hemoglobin 10.6/presurgery hemoglobin 12.3. blood sugars controlled. Vital signs stable. Review of Systems Cardio vascular: denied any chest pain, palpitations Gastrointestinal denied any nausea vomiting Pulmonary: Denied any shortness of breath cough Neurologic denied any new focal deficits ROS Statement: Those systems with pertinent positive or pertinent negative responses have been documented in the HPI. ROS Other: All systems not noted in ROS Statement are negative. Past Medical History Past Medical History: Asthma, GERD/Reflux, Hyperlipidemia, Pneumonia, Rheumatoid Arthritis (RA), Thyroid Disorder Additional Past Medical History / Comment(s): Hashimotos Thyroiditis-currently out of synthroid, lung infection for about 3 months-has taken A/B, finishing steroids, possibly RA lung issues per pt. History of Any Multi-Drug Resistant Organisms: None Reported Year Discovered:: 05/02/2014 MDRO Source:: Urine Past Surgical History: Adenoidectomy, Hysterectomy, Joint Replacement, Orthopedic Surgery, Tonsillectomy Additional Past Surgical History / Comment(s): Hx sinus surgery nov 2013, right wrist replacement, left knee replaced 12-22-21, breast reduction 2019 Past Anesthesia/Blood Transfusion Reactions: Motion Sickness, Postoperative Nausea & Vomiting (PONV) Smoking Status: Never smoker - Past Family History Mother Family Medical History: Cancer, COPD Additional Family Medical History / Comment(s): Daughter - bipolar. Medications and Allergies Home Medications Medication Instructions Recorded Confirmed Type Cyclobenzaprine [Flexeril] 10 mg PO TID 04/10/14 01/09/25 History Levothyroxine Sodium [Synthroid] 50 mcg PO QAM 05/11/22 01/09/25 History busPIRone HCL [Buspar] 7.5 mg PO BID 05/11/22 01/09/25 History HYDROcodone/APAP 7.5-325MG [Depue 1 tab PO TID 04/19/23 01/09/25 History 7.5-325] Meloxicam [Mobic] 7.5 mg PO DAILY 04/19/23 01/09/25 History Pregabalin [Lyrica] 75 mg PO TID 04/19/23 01/09/25 History Zolpidem [Ambien] 5 mg PO HS PRN 05/04/23 01/09/25 History Albuterol Inhaler [Ventolin Hfa 1 puff INHALATION TID 07/15/24 01/09/25 History Inhaler] Fluticasone Propion/Salmeterol 1 inhalation PO BID 07/15/24 01/09/25 History [Advair 100-50 Diskus] Magnesium 200 mg PO DAILY 07/15/24 01/09/25 History Multivit with Calcium,Iron,Min 1 cap PO DAILY 07/15/24 01/09/25 History [Women's Multivitamin] diphenhydrAMINE HCL [Benadryl] 50 mg PO HS 07/15/24 01/09/25 History Ondansetron Odt [Zofran Odt] 4 mg PO Q8HR PRN #12 tab 07/19/24 01/09/25 Rx Allergies Allergy/AdvReac Type Severity Reaction Status Date / Time iodine Allergy Intermediate Rash/Hives Verified 01/09/25 06:19 ciprofloxacin [From Cipro] Allergy Unknown Verified 01/09/25 06:19 ciprofloxacin HCl Allergy Nausea & Verified 01/09/25 06:19 [From Cipro] Vomiting codeine Allergy Vomiting Verified 01/09/25 06:19 gabapentin [From Neurontin] Allergy Swelling Verified 01/09/25 06:19 levothyroxine sodium Allergy Swelling Verified 01/09/25 06:19 [From Synthroid] meperidine HCl [From Demerol] Allergy Hallucinati Verified 01/09/25 06:19 ons propoxyphene HCl Allergy Vomiting Verified 01/09/25 06:19 [From Darvon] tramadol Allergy Hallucinati Verified 01/09/25 06:19 ons Physical Exam Vitals: Vital Signs Temp Pulse Pulse Pulse Resp BP Pulse Ox 01/09/25 12:35 97.7 F 62 16 134/71 100 01/09/25 12:00 59 L 16 99/56 93 L 01/09/25 11:47 59 L 16 108/60 93 L 01/09/25 11:24 55 L 14 111/61 93 L 01/09/25 11:01 56 L 16 118/63 100 01/09/25 10:45 60 16 115/60 100 01/09/25 10:30 63 16 115/62 100 01/09/25 10:15 63 16 120/62 100 01/09/25 10:00 58 L 16 124/62 100 01/09/25 09:45 59 L 16 126/62 100 01/09/25 09:39 97 F L 61 16 113/59 100 01/09/25 07:30 69 16 104/65 98 01/09/25 07:15 97.0 F L 77 16 104/70 98 01/09/25 06:30 75 16 98 Intake and Output 01/08/25 01/09/25 01/09/25 22:59 06:59 14:59 Intake Total 1025 Output Total 100 Balance 925 Intake: IV 1025 Output: Estimated Blood Loss 100 Other: Weight 49.3 kg General: Pleasant 59-year-old female patient, sitting up in bed, alert and oriented x 3, wearing sling, no acute distress HEENT: Normocephalic, atraumatic, pupils equal and reactive, no scleral icterus, conjunctiva normal. Neck: supple, mild thyromegaly,no lymphadenopathy, tenderness or JVD. Cardiovascular: S1S2 is normal,regular rate and rhythm. No murmur, rub or gallop appreciated. Respiratory: Unlabored, equal air entry, clear to auscultation. Gastrointestinal: Soft, non-distended, non-tender abdomen without masses or organomegaly noted. no rebound or guarding present.+BS. Musculoskeletal: multiple joint deformities due to RA.right arm in sling, minimal edema, positive fine motor movement of digits of right hand, positive radial pulse. no pedal edema. no calf tenderness or swelling. Neurological: CN II-XII intact, no focal deficits. Strength and sensation grossly intact Skin: warm and dry,no rashes noted. Results CBC & Chem 7: 01/09/25 06:39 Labs: Abnormal Lab Results - Last 24 Hours (Table) 01/09/25 01/09/25 01/09/25 Range/Units 06:39 06:41 07:06 RBC 3.74 L (3.80-5.40) m/uL Hgb 10.6 L (11.4-16.0) gm/dL Hct 33.2 L (34.0-46.0) % POC Glucose (mg/dL) 63 L 209 H (70-110) mg/dL Assessment and Plan Assessment: advanced right rotator cuff tear arthropathy, failed conservative management, status post right reverse total shoulder arthroplasty History of PONV Rheumatoid arthritis Chronic asthma, stable Chronic iron deficient anemia Anurag's Gastroesophageal reflux disease Anxiety Depression Marijuana use Plan: Continue on current medication regime ,monitoring and symptomatic treatment. Aggressive pulmonary toileting with Symbicort, prn albuterol inhaler, incentive spirometer ordered. Pepcid for GI prophylaxis. Pain management, DVT prophylaxis as per primary. Thank you for allowing us to participate in the care of this pleasant patient. Follow-up with PCP in 1 week. The impression and plan of care has been dictated as directed. : I performed a history and examination of this patient, discussed the same with the dictator. I agree with the dictator's note ,documented as a scribe. Any additional findings or plans will be noted.
[2025-01-09] MEDS: FAMOTIDINE 20 MG/2 ML VIAL IV SCH (16:53)
[2025-01-09] MEDS: busPIRone HCl 5 MG TAB PO SCH (16:53)
[2025-01-09] MEDS ORDERED: SYMBICORT 80-4.5 MCG INHALER INHALATION SCH (20:00)
[2025-01-09] MEDS ORDERED: ALBUTEROL NEBULIZED 2.5 MG/3 ML INHALATION SCH (20:00)
[2025-01-10] MEDS ORDERED: LEVOTHYROXINE 50 MCG TAB PO SCH (06:30)
[2025-01-10] MEDS ORDERED: MAGNESIUM OXIDE 400 MG TAB PO SCH (09:00)
== END 2025-01-09 18:30 | disposition home or self-care (01) ==
LOC: OR 05:47 → 4SSUR 09:29 → OR 18:30
PROVIDERS: ATTEND Orthopaedic Surgery Sports Medicine
DX: M75.101 Unspecified rotator cuff tear or rupture of right shoulder, not specified as traumatic (principal); M19.011 Primary osteoarthritis, right shoulder; G89.18 Other acute postprocedural pain; M06.9 Rheumatoid arthritis, unspecified; Z79.890 Hormone replacement therapy
CPT/HCPCS: 64415; 85027; 73020; 23472; C1776; J2250; J3370; J0330; J1100; J2710; J2405; J0690; J2003; J3010; J2795; J2704; J2371; J1596